=== PATIENT | male | born 1975 | race Caucasian/White ===

== ENCOUNTER → 2024-04-17 | Outpatient (CLI) | payer BC | END | disposition home or self-care (01) | LOC: RAH 13:21 | PROVIDERS: ATTEND Family Medicine | DX: M47.816 Spondylosis without myelopathy or radiculopathy, lumbar region (principal); M48.061 Spinal stenosis, lumbar region without neurogenic claudication; M99.79 Connective tissue and disc stenosis of intervertebral foramina of abdomen and other regions; M54.41 Lumbago with sciatica, right side | CPT/HCPCS: 72148 ==